=== PATIENT | male | born 1960 | race Caucasian/White ===

== ENCOUNTER 2022-02-12 08:46 | Emergency (ER) | payer OTHER, SELFPAY ==
[2022-02-12 09:12] LABS: #Lymphocytes 0.6 thou/uL (1.20-3.40); #Monocytes 1.1 thou/uL (0.11-0.59); #Neutrophils 13.1 thou/uL (1.40-6.50); %Eosinophils 0.1 % (0.0-10.0); %Lymphocytes 4.2 % (21.0-51.0); %Monocytes 7.3 % (0.0-10.0); %Neutrophils 88.4 % (42.0-75.0); Hemoglobin 16.3 g/dL (14.0-18.0); Mean Corpuscular HGB CONC 34.5 g/dL (32.0-36.0); Mean Corpuscular Hemoglobin 32.9 pg (27.0-31.0); Mean Corpuscular Volume 95.5 fL (78.0-98.0); Platelet Count 280 thou/uL (130-400); RBC Distribution Width 11.6 % (11.5-14.5); Red Blood Cell (RBC) Count 4.94 mill/uL (4.70-6.10); White Blood Cell (WBC) Count 14.9 thou/uL (4.8-10.8)
[2022-02-12 09:21] LABS: ALT (SGPT) 107 U/L (8-55); AST (SGOT) 396 U/L (5-34); Albumin 4.4 g/dL (3.5-5.0); Alkaline Phosphatase 106 U/L (40-110); Anion Gap 20 mmol/L (10-20); BUN (Urea Nitrogen) 26 mg/dL (8.4-25.7); Bilirubin, Total 1.6 mg/dL (0.2-1.2); Calc. Creatinine Clearance 0 mL/min (70-130); Calcium 9.8 mg/dL (7.8-10.44); Carbon Dioxide 17 mmol/L (22-29); Chloride 100 mmol/L (98-107); Globulin 3.6 g/dL (2.4-3.5); Glucose 122 mg/dL (70-105); Lipase 15 U/L (8-78); Potassium 4.2 mmol/L (3.5-5.1); Sodium 133 mmol/L (136-145)
[2022-02-12 09:24] LABS: Acetaminophen Less than 10.0 mcg/mL (10.0-30.0)
[2022-02-12 09:25] LABS: Alcohol Less than 10 mg/dL (Less than 10); Salicylate Less than 8.0 mg/dL (15.0-30.0)
[2022-02-12 09:49] LABS: CK (CPK) 22906 U/L (30-200)
[2022-02-12 10:44] LABS: CKMB 165.2 ng/mL (0-6.6)
[2022-02-12] MEDS ORDERED: Aspirin Chewable 81 MG TAB ONE (11:32)
[2022-02-12] MEDS ORDERED: Boostrix 0.5 ML (Tdap) VIAL ONE (11:34)
[2022-02-12] MEDS ORDERED: Iopamidol-370 76% 500 ML 1 ML ONE (14:14)
== END 2022-02-12 13:33 | disposition short-term general hospital (02) ==
LOC: ERS 08:46 → EDBD 08:46 → ERS 13:33
DX: M62.82 Rhabdomyolysis (principal); R77.8 Other specified abnormalities of plasma proteins; Z23 Encounter for immunization; Y09 Assault by unspecified means
CPT/HCPCS: 36415; 70450; 70486; 71260; 72125; 74177; 76377; 80053; 80177; 80307; 82550; 82553; 83605; 83690; 84443; 84484; 85025; 90471; 90715; 93005; G0390; Q9967

== ENCOUNTER 2022-09-26 05:05 | Inpatient (IN) | payer MEDICARE ==
[2022-09-26] MEDS ORDERED: Azithromycin 500 MG VIAL ONE (07:40)
[2022-09-26] MEDS ORDERED: Sodium Chloride 0.9% 100 ML ONE (07:40)
[2022-09-26] MEDS ORDERED: cefTRIAXone\\ROCEPHIN 2 GM VIAL ONE (07:40)
[2022-09-26] MEDS ORDERED: Ondansetron PF 4 MG/2 ML Vial ONE (07:40)
[2022-09-26] MEDS ORDERED: Acetaminophen 500 MG TAB ONE (08:09)
[2022-09-26 08:17] LABS: #Lymphocytes 0.5 thou/uL (1.20-3.40); #Monocytes 0.5 thou/uL (0.11-0.59); #Neutrophils 7.6 thou/uL (1.40-6.50); %Basophils 0.1 % (0.0-1.0); %Eosinophils 0.2 % (0.0-10.0); %Monocytes 5.8 % (0.0-10.0); %Neutrophils 87.8 % (42.0-75.0); Hemoglobin 15.4 g/dL (14.0-18.0); Mean Corpuscular HGB CONC 34.2 g/dL (32.0-36.0); Mean Corpuscular Hemoglobin 31.9 pg (27.0-31.0); Mean Corpuscular Volume 93.1 fl (78.0-98.0); Mean Platelet Volume 7.3 fL (7.4-10.4); Platelet Count 255 10x3/uL (130-400); RBC Distribution Width 11.4 % (11.5-14.5); Red Blood Cell (RBC) Count 4.82 mill/uL (4.70-6.10); White Blood Cell (WBC) Count 8.7 10x3/uL (4.8-10.8)
[2022-09-26 08:38] LABS: ALT (SGPT) 19 U/L (8-55); AST (SGOT) 26 U/L (5-34); Albumin 4.3 g/dL (3.4-4.8); Alkaline Phosphatase 101 U/L (40-110); Anion Gap 13 mmol/L (10-20); BUN (Urea Nitrogen) 12 mg/dL (8.4-25.7); Bilirubin, Total 0.5 mg/dL (0.2-1.2); Calc. Creatinine Clearance 0 mL/min (70-130); Calcium 9.3 mg/dL (7.8-10.44); Carbon Dioxide 28 mmol/L (23-31); Chloride 104 mmol/L (98-107); Estimated GFR 89; Globulin 3.3 g/dL (2.4-3.5); Glucose 96 mg/dL (80-115); Potassium 4.5 mmol/L (3.5-5.1); Protein, Total 7.6 g/dL (5.8-8.1); Sodium 140 mmol/L (136-145)
[2022-09-26 08:54] LABS: Bilirubin Negative (Negative); Blood, Urine Negative (Negative); Clarity Clear (Clear); Glucose, Urine (Dipstick) 70 mg/dL (Negative); Ketone, Urine Trace mg/dL (Negative); Leukocyte Negative Leu/uL (Negative); Nitrite Negative (Negative); Protein, Urine (Dipstick) 10 mg/dL (Neg-Trace); Specific Gravity, Urine 1.015 (1.002-1.036); Urobilinogen Normal mg/dL (Less than 2)
[2022-09-26 09:20] LABS: SARS-CoV-2 NAA Rapid Test Not Detected (NotDetected)
[2022-09-26] MEDS ORDERED: levETIRAcetam 500 MG TAB PO SCH (09:30)
[2022-09-26] MEDS ORDERED: Acetaminophen 325 MG TAB PO PRN (10:38)
[2022-09-26] MEDS ORDERED: Ondansetron PF 4 MG/2 ML Vial IVP PRN (10:38)
[2022-09-26] MEDS ORDERED: Ondansetron ODT 4 MG TAB PO PRN (10:38)
[2022-09-26 13:29] VITALS: BMI 25.8
[2022-09-26] MEDS: Sodium Chloride 0.9% 1,000 ML IV SCH ×2 (18:29→20:16)
[2022-09-26] MEDS ORDERED: Lorazepam 2 MG/ML VIAL SLOW IVP PRN (19:30)
[2022-09-26] MEDS: levETIRAcetam 500 MG/5 ML VIAL SLOW IVP SCH (20:13)
[2022-09-26] MEDS ORDERED: levETIRAcetam in NS 500 MG in Premix Bag 1 BAG IVPB SCH (21:00)
[2022-09-26] MEDS ORDERED: levETIRAcetam in NS 1,500 MG in Premix Bag 1 BAG IVPB SCH (21:00)
[2022-09-27] MEDS: Sodium Chloride 0.9% 1,000 ML IV SCH ×2 (05:19→14:46)
[2022-09-27 05:41] LABS: ALT (SGPT) 21 U/L (8-55); AST (SGOT) 43 U/L (5-34); Albumin 3.6 g/dL (3.4-4.8); Alkaline Phosphatase 88 U/L (40-110); Anion Gap 11 mmol/L (10-20); BUN (Urea Nitrogen) 10 mg/dL (8.4-25.7); Bilirubin, Total 0.7 mg/dL (0.2-1.2); Calc. Creatinine Clearance 121 mL/min (70-130); Calcium 8.7 mg/dL (7.8-10.44); Carbon Dioxide 24 mmol/L (23-31); Chloride 106 mmol/L (98-107); Estimated GFR 103; Glucose 101 mg/dL (80-115); Protein, Total 6.6 g/dL (5.8-8.1); Sodium 137 mmol/L (136-145)
[2022-09-27] MEDS: levETIRAcetam 500 MG/5 ML VIAL SLOW IVP SCH (08:21)
[2022-09-27] MEDS ORDERED: OXcarbazepine 300 MG TAB PO SCH (13:15)
[2022-09-27] MEDS: levETIRAcetam 500 MG TAB PO SCH (20:43)
[2022-09-27] MEDS: OXcarbazepine 300 MG TAB PO SCH (20:44)
[2022-09-28 06:16] LABS: ALT (SGPT) 18 U/L (8-55); AST (SGOT) 27 U/L (5-34); Albumin 3.4 g/dL (3.4-4.8); Alkaline Phosphatase 80 U/L (40-110); Anion Gap 14 mmol/L (10-20); BUN (Urea Nitrogen) 13 mg/dL (8.4-25.7); Bilirubin, Total 0.9 mg/dL (0.2-1.2); Calc. Creatinine Clearance 121 mL/min (70-130); Calcium 8.7 mg/dL (7.8-10.44); Carbon Dioxide 23 mmol/L (23-31); Chloride 101 mmol/L (98-107); Estimated GFR 103; Glucose 79 mg/dL (80-115); Potassium 3.5 mmol/L (3.5-5.1); Protein, Total 6.4 g/dL (5.8-8.1); Sodium 134 mmol/L (136-145)
[2022-09-28] MEDS: OXcarbazepine 300 MG TAB PO SCH ×2 (09:08→20:29)
[2022-09-28] MEDS: levETIRAcetam 500 MG TAB PO SCH ×2 (09:08→20:29)
[2022-09-29 06:35] LABS: Anion Gap 14 mmol/L (10-20); BUN (Urea Nitrogen) 11 mg/dL (8.4-25.7); Calc. Creatinine Clearance 113 mL/min (70-130); Calcium 8.8 mg/dL (7.8-10.44); Carbon Dioxide 26 mmol/L (23-31); Chloride 102 mmol/L (98-107); Estimated GFR 101; Glucose 95 mg/dL (80-115); Potassium 3.7 mmol/L (3.5-5.1); Sodium 138 mmol/L (136-145)
[2022-09-29] MEDS: levETIRAcetam 500 MG TAB PO SCH (09:07)
[2022-09-29] MEDS: OXcarbazepine 300 MG TAB PO SCH (09:07)
[2022-09-29 12:40] VITALS: TEMP 98.7
[2022-09-29 22:11] VITALS: BP 119/69
== END 2022-09-29 15:53 | DRG 100 ==
LOC: ERS 05:05 → ERHOLD 10:10 → T4-B 17:53 → NEURO 22:36 → OBSVTOIN 09-28 16:23
PROVIDERS: ADMIT Family Medicine; ATTEND Family Medicine
DX: G40.919 Epilepsy, unspecified, intractable, without status epilepticus (principal); J96.01 Acute respiratory failure with hypoxia; E87.1 Hypo-osmolality and hyponatremia; Z20.822 Contact with and (suspected) exposure to COVID-19; G93.89 Other specified disorders of brain; Z79.899 Other long term (current) drug therapy
CPT/HCPCS: 36415; 70450; 71045; 71046; 80048; 80053; 80177; 81003; 83605; 83880; 84146; 84484; 85025; 87040; 93005; 95712; 95819; 95957; 96375; 96376; G0378; J0456; J0696; J1953; J2060; J2405; J3490; J7050